=== PATIENT | male | born 1935 | race Caucasian/White ===

== ENCOUNTER 2021-08-16 10:16 | Inpatient (IN) | payer MEDICARE ==
[~2021-08-16] VITALS: Ht 172.7 cm; Wt 70.8 kg
[2021-08-16 10:20] VITALS: BP_SYST 137
--- NOTE | 2021-08-16 10:23 | NUR ---
Pt to rm 2 via ambulance [facility]
--- NOTE | 2021-08-16 10:30 | NUR ---
Pt BIBA from home re ALOC per family. Per medics, family states pt has PMH dementia. Upon face to face assessment, pt is alert and oriented to self and place, but not situation. VSS on database reporting consultant. No pain or complaint of any kind reported. Medics further reported pt fell last night; denies LOC or hitting head. Pending MD merrill.
--- NOTE | 2021-08-16 10:42 | NUR ---
Per medics, pt's family unable to located medications. Pt ALOC and unable to provide medication information.
--- NOTE | 2021-08-16 10:44 | NUR ---
Radiology at bedside for cxr
--- NOTE | 2021-08-16 11:35 | NUR ---
# 22 gauge angiocath placed to R AC. Use of asceptic technique. Opsite placed over site. Blood return noted. Blood for lab drawn from site. Flushed with 10 cc of normal saline. No evidence of infiltration noted. Patient tolerated well.
--- NOTE | 2021-08-16 11:35 | NUR ---
COVID swab collected at bedside and sent to lab
--- NOTE | 2021-08-16 11:40 | NUR ---
Pt to CT scan via [facility]
[2021-08-16 12:15] LABS: BASOPHILS % (AUTO) 0.7 % (0.0-2.0); EOSINOPHILS # (AUTO) 0.2 K/uL (0.0-0.4); EOSINOPHILS % (AUTO) 2.5 % (0.0-4.0); HEMATOCRIT 36.6 % (36-54); HEMOGLOBIN 12.2 g/dL (14.0-18.0); LYMPHOCYTES # (AUTO) 1.1 K/uL (1.0-5.5); LYMPHOCYTES % (AUTO) 15.8 % (20.5-51.5); MEAN CORPUSCULAR HEMOGLOBIN 29 pg (27-31); MEAN CORPUSCULAR HGB CONC 33 % (32-36); MEAN CORPUSCULAR VOLUME 86 fL (79.0-98.0); MONOCYTES # (AUTO) 0.7 K/uL (0.0-1.0); MONOCYTES % (AUTO) 10.8 % (1.7-9.3); NEUTROPHILS # (AUTO) 4.7 K/uL (1.8-7.7); NEUTROPHILS % (AUTO) 70.2 % (40.0-70.0); PLATELET COUNT (AUTO) 263 K/uL (130-430); RED BLOOD CELL COUNT(AUTO) 4.24 MIL/uL (4.2-6.2); RED CELL DISTRIBUTION WIDTH 15.5 % (9.0-15.0); WHITE BLOOD COUNT (AUTO) 6.7 K/uL (4.8-10.8)
[2021-08-16 12:22] LABS: ANION GAP 6 (5-15); CALCIUM 8.1 mg/dL (8.4-11.0); CHLORIDE 105 mmol/L (98-107); CREATININE 1.16 mg/dL (0.55-1.30); GLUCOSE 130 mg/dL (70-99); SODIUM SERUM 138 mmol/L (136-145); UREA NITROGEN, BLOOD 24 mg/dL (8-21)
[2021-08-16 12:25] LABS: INR 1.2 (0.80-1.20); PROTHROMBIN TIME 11.7 SECS (9.5-12.5)
[2021-08-16 12:39] LABS: ALANINE AMINOTRANSFERASE 14 U/L (12-78); ALBUMIN 3.3 g/dL (3.4-4.8); ASPARTATE AMINOTRANSFERASE 23 U/L (10-37); TOTAL BILIRUBIN 0.6 mg/dL (0.0-1.0)
[2021-08-16 12:46] LABS: ACETAMINOPHEN < 1 ug/mL (1-30); ALCOHOL, BLOOD < 3 mg/dL (<10)
--- NOTE | 2021-08-16 12:55 | NUR ---
16Fr Carrillo inserted; UA obtained. Catheter then removed. Pt jada well.
--- NOTE | 2021-08-16 12:55 | NUR ---
Complete bed linen change; pt cleaned and repositioned.
--- NOTE | 2021-08-16 12:57 | NUR ---
urine specimen collected from In and Out blackmon catheter sent to lab. Pt tolerated well.
[2021-08-16 13:39] LABS: BILIRUBIN,URINE NEGATIVE (NEGATIVE); BLOOD, URINE 1+ (NEGATIVE); COLOR,URINE YELLOW (YELLOW); GLUCOSE,URINE 1+ (NEGATIVE); KETONES,URINE NEGATIVE (NEGATIVE); LEUKOCYTE ESTERASE ,URINE NEGATIVE (NEGATIVE); NITRITE, URINE NEGATIVE (NEGATIVE); PH,URINE 5.5 (5.0-8.0); PROTEIN URINE NEGATIVE (NEGATIVE); UROBILINOGEN,URINE 0.2 (0.2-1.0)
[2021-08-16 13:40] LABS: CLARITY/URINE SLIGHTLY HAZY (CLEAR)
[2021-08-16 13:43] LABS: BACTERIA,URINE FEW /HPF (None Seen); WBC,URINE 0-3 /HPF (0-3)
[2021-08-16 13:44] LABS: MUCUS,URINE 1+ /LPF (None Seen)
[2021-08-16] MEDS ORDERED: CYAN100010 PO (13:45)
[2021-08-16] MEDS ORDERED: vitamin D2 (13:45)
[2021-08-16] MEDS ORDERED: INSU100V9 SQ (13:45)
[2021-08-16] MEDS ORDERED: FOLI-43 PO (13:45)
[2021-08-16] MEDS ORDERED: SIMV10TA2 PO (13:45)
[2021-08-16] MEDS ORDERED: SSREG SUBCUT (13:45)
[2021-08-16] MEDS ORDERED: DABI150C PO (13:45)
--- NOTE | 2021-08-16 13:46 | NUR ---
Medication reconciliation completed with information provided by patient's dtr over the phone. Any prior medication reconciliation on file was reviewed and corrected.
[2021-08-16 13:52] LABS: BARBITURATE, URINE NEGATIVE (NEG <=200); BENZODIAZEPINE, URINE NEGATIVE (NEG <=150); CANNABINOID, URINE NEGATIVE (NEG <=50); COCAINE, URINE NEGATIVE (NEG <=150); METHAMPHETAMINES SCREEN,URINE NEGATIVE (NEG <=500); OPIATE, URINE NEGATIVE (NEG <=100); PHENCYCLIDINE SCREEN,URINE NEGATIVE (NEG <=25); UR TRICYCLIC ANTIDEPRESSANTS NEGATIVE (NEG <=300); URINE AMPHETAMINE NEGATIVE (NEG <=500); URINE METHADONE NEGATIVE (NEG <=200); URINE OXYCODONE SCREEN NEGATIVE (NEG <=100); URINE PROPOXYPHENE SCREEN NEGATIVE (NEG <=300)
[2021-08-16] MEDS ORDERED: NALOXONE HCL 2 MG/2 ML SYR (NARCAN) IVP ONE (14:00)
--- NOTE | 2021-08-16 14:44 | NUR ---
RN will hold Narcan at this time. Pt sleeping, easily arousable to voice. Pt has hx dementia. Dr Smith informed.
--- NOTE | 2021-08-16 15:56 | NUR ---
Pt to transfer to [place]. Awaiting transfer information.
--- NOTE | 2021-08-16 17:30 | NUR ---
Pt SL to R AC discontinued due to infiltration
--- NOTE | 2021-08-16 18:05 | NUR ---
No transfer information received for [place] yet. Pt continues to await transfer. Pt attempting to get out of bed; very confused and requiring frequent redirection/reorientation to situation. Will continue to monitor closely.
[2021-08-16] MEDS: D5/0.45 NS 1,000 ML IV SCH (18:45)
--- NOTE | 2021-08-16 18:47 | NUR ---
Admit bed requested Patient will be admitted to care of Dr. Rosas. Admitted to tele unit. Diagnosis Encephalopathy Inpatient (Yes or No) Y Observation (Yes or No) N Orientation concerns or request close to nursing station (Yes or No) N Covid Status Neg On vent or bipap N Isolation requirements N Needs a sitter N From Home (Yes or if No enter name of facility) Home Requires Dialysis (Yes or No) N Med Rec Completed (Yes of No) Y
--- NOTE | 2021-08-16 19:16 | NUR ---
Report given to Zain KULKARNI to assume care of patient
--- NOTE | 2021-08-16 20:16 | NUR ---
# 20 gauge angiocath placed to . Use of asceptic technique. Opsite placed over site. Blood return noted. Blood for lab drawn from site. Flushed with 10 cc of normal saline. No evidence of infiltration noted. Patient tolerated well.
--- NOTE | 2021-08-16 23:00 | NUR ---
# 20 gauge angiocath placed to . Use of asceptic technique. Opsite placed over site. Blood return noted. Blood for lab drawn from site. Flushed with 10 cc of normal saline. No evidence of infiltration noted. Patient tolerated well. PREVIOUS IV PULLED OUT BY PATIENT.
--- NOTE | 2021-08-17 | NUR ---
PATIENT CLEANED AND LINENS CHANGED.
--- NOTE | 2021-08-17 01:51 | NUR ---
PATIENT CLEANED, LINENS CHANGED. NEW IV PLACED.
[2021-08-17 02:10] VITALS: BP_SYST 179
[2021-08-17 02:31] VITALS: BP_SYST 173
[2021-08-17] MEDS: D5/0.45 NS 1,000 ML IV SCH (03:40)
[2021-08-17] MEDS ORDERED: cloNIDine HCL 0.1 MG TABLET PO PRN (06:00)
[2021-08-17 08:00] VITALS: BP_SYST 148
[2021-08-17] MEDS ORDERED: DABIGATRAN ETEXILATE MESYLATE 75 MG CAPSULE PO SCH (09:00)
[2021-08-17] MEDS: FOLIC ACID 1 MG TABLET PO SCH (09:43)
[2021-08-17] MEDS: CYANOCOBALAMIN 1000 mCg TABLET PO SCH (09:43)
[2021-08-17 12:00] VITALS: BP_SYST 150
--- NOTE | 2021-08-17 12:52 | NUR ---
CONSULTATION PAGED/CALLED Reason for Consultation: [] SEIZURES Person Who was Notified: [] DR Deb MEHTA Consulting Physician: [] DR Deb MEHTA Head Tennis Professional Specialty: [] NEURO Ordering Physician: [] DR CONTRERAS
[2021-08-17] MEDS: INSULIN REGULAR, HUMAN 100 UNITS/ML, 10 ML VIAL (humuLIN R) SUBCUT PRN (13:09)
--- NOTE | 2021-08-17 13:52 | NUR ---
FRAN: Brad: per Yvette, standards analyst stated aware that the pt is admitted and the clinical is being reviewed, no transfer to network for today.
[2021-08-17 16:00] VITALS: BP_SYST 142
--- NOTE | 2021-08-17 19:15 | NUR ---
OPENING NOTE REPORT RECEIVED FROM DAYSHIFT NURSE. PATIENT RECEIVED LYING IN BED, EYES CLOSED, RESTING, NO S/S OF ACUTE DISTRESS. BREATHING IS EVEN AND UNLABORED. HOB SLIGHTLY RAISED. IVF INFUSING WELL, IV SITE PATENT, NO SIGNS OF INFILTRATION OR INFECTION NOTED. SKIN WARM AND DRY TO TOUCH. BED ALARM ON. BED IS LOCKED AND AT LOWEST POSITION. WILL CONTINUE TO MONITOR.
[2021-08-17 20:00] VITALS: BP_SYST 148
[2021-08-17] MEDS: SIMVASTATIN 10 MG TABLET PO SCH (20:57)
--- NOTE | 2021-08-17 21:30 | NUR ---
INCONTINENT CARE PATIENT CLEANED AT THIS TIME, TOLERATED WELL. ALL NEEDS MET. WILL CONTINUE TO MONITOR.
[2021-08-18 00:42] VITALS: BP_SYST 154
[2021-08-18] MEDS: INSULIN REGULAR, HUMAN 100 UNITS/ML, 10 ML VIAL (humuLIN R) SUBCUT PRN ×3 (06:00→21:25)
--- NOTE | 2021-08-18 06:23 | NUR ---
CLOSING NOTE PATIENT IN BED, RESTING, NO S/S OF ACUTE DISTRESS NOTED. BREATHING EVEN AND UNLABORED. HOB RAISED. IVF INFUSING WELL, IV SITE PATENT, NO SIGNS OF INFILTRATION OR INFECTION NOTED. SKIN WARM AND DRY TO TOUCH, LAST BS AT 157. ALL NEEDS MET THROUGHOUT SHIFT. FALL, SAFETY PRECAUTIONS MAINTAINED THROUGHOUT SHIFT. WILL CONTINUE TO MONITOR UNTIL PATIENT CARE IS ENDORSED TO ONCOMING DAYSHIFT NURSE.
[2021-08-18 06:27] LABS: ANION GAP 9 (5-15); CHLORIDE 101 mmol/L (98-107); CREATININE 1.06 mg/dL (0.55-1.30); GLUCOSE 172 mg/dL (70-99); POTASSIUM 3.3 mmol/L (3.5-5.1); SODIUM SERUM 136 mmol/L (136-145); UREA NITROGEN, BLOOD 16 mg/dL (8-21)
[2021-08-18 06:43] LABS: ALANINE AMINOTRANSFERASE 10 U/L (12-78); ALBUMIN 3.1 g/dL (3.4-4.8); ASPARTATE AMINOTRANSFERASE 23 U/L (10-37); BASOPHILS % (AUTO) 0.6 % (0.0-2.0); EOSINOPHILS # (AUTO) 0.2 K/uL (0.0-0.4); EOSINOPHILS % (AUTO) 2.6 % (0.0-4.0); HEMATOCRIT 39.3 % (36-54); HEMOGLOBIN 13.4 g/dL (14.0-18.0); LYMPHOCYTES # (AUTO) 0.7 K/uL (1.0-5.5); LYMPHOCYTES % (AUTO) 8.9 % (20.5-51.5); MEAN CORPUSCULAR HEMOGLOBIN 29 pg (27-31); MEAN CORPUSCULAR HGB CONC 34 % (32-36); MEAN CORPUSCULAR VOLUME 85 fL (79.0-98.0); MONOCYTES # (AUTO) 0.9 K/uL (0.0-1.0); NEUTROPHILS % (AUTO) 75.9 % (40.0-70.0); PLATELET COUNT (AUTO) 276 K/uL (130-430); RED BLOOD CELL COUNT(AUTO) 4.63 MIL/uL (4.2-6.2); RED CELL DISTRIBUTION WIDTH 15.3 % (9.0-15.0); THYROID STIMULATING HORMONE 1.08 uIu/mL (0.36-3.74); TOTAL BILIRUBIN 1.1 mg/dL (0.0-1.0); WHITE BLOOD COUNT (AUTO) 7.8 K/uL (4.8-10.8)
--- NOTE | 2021-08-18 07:15 | NUR ---
OPENING NOTE Patient in bed resting with eyes closed. No sign of distress or pain. IV is clean, dry, intact, and running prescribed fluids. Bed alarm is on and safety checks made. All needs met at this time.
[2021-08-18 08:00] VITALS: BP_SYST 150
[2021-08-18] MEDS: FOLIC ACID 1 MG TABLET PO SCH (09:05)
[2021-08-18] MEDS: CYANOCOBALAMIN 1000 mCg TABLET PO SCH (09:05)
[2021-08-18 10:10] LABS: CHOLESTEROL 113 mg/dL (<200); HDL CHOLESTEROL 32 mg/dL (>45); LDL CHOLESTEROL 72 mg/dL (<100); TRIGLYCERIDES 55 mg/dL (30-150)
[2021-08-18] MEDS: D5/0.45 NS 1,000 ML IV SCH (10:45)
[2021-08-18] MEDS: VANCOMYCIN HCL 750 MG in NS 250 ML IV SCH ×2 (11:34→21:22)
[2021-08-18 12:00] VITALS: BP_SYST 156
--- NOTE | 2021-08-18 19:00 | NUR ---
CLOSING NOTE Patient in bed resting with eyes closed. Patient refused dinner and stated he wanted to sleep. IV site is patent and running prescribed fluids. No sign of distress or pain. All needs met at this time and safety checks made. Endorsed to shift lab technician nurse.
[2021-08-18] MEDS: SIMVASTATIN 10 MG TABLET PO SCH ×2 (21:00→21:21)
[2021-08-18 21:27] VITALS: BP_SYST 145
[2021-08-19 00:34] VITALS: BP_SYST 137
[2021-08-19] MEDS: D5/0.45 NS 1,000 ML IV SCH (06:14)
[2021-08-19] MEDS: INSULIN REGULAR, HUMAN 100 UNITS/ML, 10 ML VIAL (humuLIN R) SUBCUT PRN ×3 (06:22→20:59)
--- NOTE | 2021-08-19 07:25 | NUR ---
MORNING ROUNDS: PATIENT SLEEPING DURING ROUNDS. IV FLUIDS RUNNING AT LEFT FOREARM INTACT. ROOM AIR,WITH GOOD SATURATION.ON TELEMETRY,ATRIAL FLUTTER.DENIES ANY PAIN.CONTINUE TO MONITOR.
[2021-08-19 08:00] VITALS: BP_SYST 146
--- NOTE | 2021-08-19 08:30 | NUR ---
FED BREAKFAST: PATIENT ATE ONLY 10% OF HIS BREAKFAST TRAY. PATIENT REFUSED TO EAT MORE.CRUSHED MEDS WITH APPLE SAUCE GIVEN TO PATIENT AND WELL TOLERATED.
[2021-08-19] MEDS: CYANOCOBALAMIN 1000 mCg TABLET PO SCH (09:58)
[2021-08-19] MEDS: FOLIC ACID 1 MG TABLET PO SCH (09:58)
[2021-08-19] MEDS: VANCOMYCIN HCL 750 MG in NS 250 ML IV SCH ×2 (10:04→21:08)
--- NOTE | 2021-08-19 16:20 | NUR ---
DAUGHTER CALLED: SPOKE WITH ROSI AND UPDATES GIVEN.
[2021-08-19 16:29] VITALS: BP_SYST 149
--- NOTE | 2021-08-19 18:51 | NUR ---
EVENING ROUNDS: PATIENT,SLEEPING DURING ROUNDS. IV FLUIDS RUNNING AT LEFT FOOT ORDERED. BED LOCKED AT LOWEST POSITION. NOT IN ANY DISTRESS.BED ALARM ON.
[2021-08-19 20:00] VITALS: BP_SYST 147
[2021-08-19] MEDS: SIMVASTATIN 10 MG TABLET PO SCH (20:47)
[2021-08-20] VITALS: BP_SYST 135
[2021-08-20] MEDS: D5/0.45 NS 1,000 ML IV SCH ×2 (03:21→21:18)
[2021-08-20] MEDS: INSULIN REGULAR, HUMAN 100 UNITS/ML, 10 ML VIAL (humuLIN R) SUBCUT PRN ×2 (06:47→16:58)
--- NOTE | 2021-08-20 07:45 | NUR ---
MORNING ROUNDS: PATIENT RESTING IN THE BED. IV FLUIDS RUNNING AT LEFT FOOT ORDERED. BED LOCKED AT LOWEST POSITION. SAFETY MEASURES RENDERED. CONTINUE TO MONITOR.
[2021-08-20 08:00] VITALS: BP_SYST 148
[2021-08-20] MEDS: FOLIC ACID 1 MG TABLET PO SCH (09:35)
[2021-08-20] MEDS: CYANOCOBALAMIN 1000 mCg TABLET PO SCH (09:35)
--- NOTE | 2021-08-20 15:24 | NUR ---
[employer] TRAVEL MANAGER received a referral for possible suicidal risk. TRAVEL MANAGER met w/ pt. bedside. Pt was awake, but spoke with his eyes closed throughout this interview. When TRAVEL MANAGER asked pt. if he knew where he was, why he was in the hospital and what his address were. Pt. did not know any of the answers. TRAVEL MANAGER asked pt. to look at his lunch, but pt. refused. TRAVEL MANAGER was not able to participate in this interview and did not have any questions. TRAVEL MANAGER shared info with FRAN Flores to make her aware pt was not alert and oriented. TRAVEL MANAGER will remain available as needed.
--- NOTE | 2021-08-20 16:08 | NUR ---
DISCHARGE PLANNING Called & spoke with Dr Rosas regarding dc planning SNF or if stable to transfer to contracted hospital, [facility]. States stable to transfer to [facility], not ready for dc. Faxed order/ pt info to [facility]. Ordered CD. Placing transfer packet to nsg station.
[2021-08-20 16:20] VITALS: BP_SYST 140
--- NOTE | 2021-08-20 18:58 | NUR ---
Evening Rounds: Patient refused dinner. Md is aware regarding his poor appetite and family as well. Bed alarm on.bed locked at lowest position.Not in any distress.
--- NOTE | 2021-08-20 21:00 | NUR ---
Skin care comfort Patient oriented to his name , perineal care given no pressure sore , able to change position and turn , assisted in taking medication tolerates well with out aspiration, safety/fall precaution initiated.
[2021-08-20] MEDS: SIMVASTATIN 10 MG TABLET PO SCH (21:05)
[2021-08-21 01:29] VITALS: BP_SYST 142
--- NOTE | 2021-08-21 02:46 | NUR ---
PATIENT RESTING: Patient resting quietly. No acute distress noted. telemetry atrial flutter controlled,
[2021-08-21] MEDS: INSULIN REGULAR, HUMAN 100 UNITS/ML, 10 ML VIAL (humuLIN R) SUBCUT PRN ×4 (06:16→20:34)
--- NOTE | 2021-08-21 06:27 | NUR ---
No significant changes in assessment , pericare given , patient able to turn side to side, safety fall precaution initiated
[2021-08-21 06:44] LABS: BASOPHILS % (AUTO) 0.9 % (0.0-2.0); EOSINOPHILS % (AUTO) 1.1 % (0.0-4.0); HEMATOCRIT 39.6 % (36-54); HEMOGLOBIN 13.6 g/dL (14.0-18.0); LYMPHOCYTES # (AUTO) 1.3 K/uL (1.0-5.5); LYMPHOCYTES % (AUTO) 30.9 % (20.5-51.5); MEAN CORPUSCULAR HEMOGLOBIN 29 pg (27-31); MEAN CORPUSCULAR HGB CONC 34 % (32-36); MEAN CORPUSCULAR VOLUME 85 fL (79.0-98.0); MONOCYTES # (AUTO) 0.8 K/uL (0.0-1.0); MONOCYTES % (AUTO) 19.3 % (1.7-9.3); NEUTROPHILS % (AUTO) 47.8 % (40.0-70.0); PLATELET COUNT (AUTO) 197 K/uL (130-430); RED BLOOD CELL COUNT(AUTO) 4.68 MIL/uL (4.2-6.2); RED CELL DISTRIBUTION WIDTH 15.5 % (9.0-15.0); WHITE BLOOD COUNT (AUTO) 4.2 K/uL (4.8-10.8)
[2021-08-21 07:00] VITALS: BP_SYST 128
[2021-08-21 07:53] LABS: ALANINE AMINOTRANSFERASE 18 U/L (12-78); ANION GAP 10 (5-15); ASPARTATE AMINOTRANSFERASE 42 U/L (10-37); CALCIUM 8.8 mg/dL (8.4-11.0); CHLORIDE 98 mmol/L (98-107); CREATININE 1.05 mg/dL (0.55-1.30); GLUCOSE 174 mg/dL (70-99); POTASSIUM 3.3 mmol/L (3.5-5.1); SODIUM SERUM 132 mmol/L (136-145); TOTAL BILIRUBIN 0.6 mg/dL (0.0-1.0); UREA NITROGEN, BLOOD 17 mg/dL (8-21)
[2021-08-21 08:00] VITALS: BP_SYST 128
[2021-08-21] MEDS: MEGESTROL ACETATE 40 MG TABLET PO SCH (08:44)
[2021-08-21] MEDS: FOLIC ACID 1 MG TABLET PO SCH (08:44)
[2021-08-21] MEDS: CYANOCOBALAMIN 1000 mCg TABLET PO SCH (08:44)
[2021-08-21 12:10] VITALS: BP_SYST 137
[2021-08-21 16:12] VITALS: BP_SYST 126
--- NOTE | 2021-08-21 16:28 | NUR ---
CM: updated dcp with dtr, Sneha, she wants pt to go home with HH, thinking that is best for the pt. Dtr and stephan are the fulltime skin care technician. The pt had prior out patient PT at [facility]. Pending the PT eval is pending for tomorrow then to get the order from PCP for an appropriate dc order. Addendum: 08/22/21 at 1354 by Fabiola Serrato RN Late entry: 08/21 at 1000 am LVM to [facility] dept to update me the transfer status, no return call by 1630.
--- NOTE | 2021-08-21 17:09 | NUR ---
POWER OF HELP DESK TECHNICIAN: DAUGHTER DAYNE HAS THE POWER OF HELP DESK TECHNICIAN FOR PATIENT. PLEASE CALL HER FOR ANY UPDATES/QUESTIONS AT [phone]. DAYNE WOULD LIKE TO SPEAK TO RADIOLOGY RECEPTIONIST. ATTEMPTED TO CALL CM BUT HE/SHE IS GONE FOR THE DAY. RELAYED INFORMATION TO CHARGE NURSE ELKIN AND AWARE ABOUT THE SITUATION. PATIENT LIVES WITH OTHER DAUGHTER ROSI
[2021-08-21] MEDS ORDERED: IPRATROPIUM/ALBUTEROL SULFATE 3 ML AMPUL.NEB (DUONEB) INH PRN (18:00)
[2021-08-21] MEDS ORDERED: IPRATROPIUM/ALBUTEROL SULFATE 3 ML AMPUL.NEB (DUONEB) INH SCH (19:00)
--- NOTE | 2021-08-21 19:03 | NUR ---
END OF SHIFT REPORT GIVEN TO CAYLA S GAVIN. THANK YOU
[2021-08-21 19:40] VITALS: BP_SYST 111
--- NOTE | 2021-08-21 19:40 | NUR ---
INITIAL ASSESSMENT AT INITIAL ASSESSMENT, PATIENT IS RESTING IN BED, STABLE, NO SIGNS OF RESPIRATORY DISTRESS. PATIENT VERBALIZES TOLERABLE PAIN. PLAN OF CARE IS COMMUNICATED TO THE PATIENT, BUT PATIENT IS CONFUSED. CALL LIGHT TEACH BACK IS UNSUCCESSFUL AT THIS TIME DUE TO COGNITIVE IMPAIRMENT. PATIENT IS IN A ROOM NEXT TO THE NURSING STATION FOR CLOSE MONITORING. BED IS LOCKED, ALARMED, AND AT THE LOWEST LEVEL. FALL AND SAFETY PRECAUTIONS WILL BE TAKEN THROUGHOUT THE SHIFT. Addendum: 08/22/21 at 0348 by Maxi glaze grinder PATIENT VERBALIZES NO PAIN*
[2021-08-21] MEDS: D5/0.45 NS 1,000 ML IV SCH (20:24)
[2021-08-21] MEDS: SIMVASTATIN 10 MG TABLET PO SCH (20:24)
--- NOTE | 2021-08-21 21:50 | NUR ---
HYGIENE CARE PATIENT HAD A VOID, HYGIENE CARE IS PROVIDED. PATIENT TOLERATED WELL. HE IS REPOSITIONED FOR COMFORT. BED IS LOCKED, ALARMED, AND AT THE LOWEST LEVEL.
[2021-08-22 01:35] VITALS: BP_SYST 141
[2021-08-22] MEDS: INSULIN REGULAR, HUMAN 100 UNITS/ML, 10 ML VIAL (humuLIN R) SUBCUT PRN ×3 (06:05→16:45)
--- NOTE | 2021-08-22 07:10 | NUR ---
CLOSING NOTE PATIENT SLEPT WELL THROUGHOUT THE NIGHT. AT THIS TIME, HE IS RESTING IN BED, STABLE, NO SIGNS OF RESPIRATORY DISTRESS. CALL LIGHT IS WITHIN REACH. BED IS LOCKED, ALARMED, AND AT THE LOWEST LEVEL. FALL AND SAFETY PRECAUTIONS HAVE BEEN IN PLACE THROUGHOUT THE SHIFT. WILL CONTINUE TO MONITOR UNTIL SHIFT REPORT IS GIVEN AT BEDSIDE TO AM NURSE.
[2021-08-22 07:35] VITALS: BP_SYST 142
[2021-08-22] MEDS: FOLIC ACID 1 MG TABLET PO SCH (08:39)
[2021-08-22] MEDS: MEGESTROL ACETATE 40 MG TABLET PO SCH (08:39)
[2021-08-22] MEDS: CYANOCOBALAMIN 1000 mCg TABLET PO SCH (08:39)
[2021-08-22] MEDS ORDERED: LIDOCAINE PATCH 5% 1 EA TP SCH (09:00)
--- NOTE | 2021-08-22 09:30 | NUR ---
CM: Received call from dtr/Sneha , requesting pt going to snf instead taking the pt home. She consulted with family and determined that the acuity is to high for family to handle. The pt will need PT/OT till strong enough to go home. Sneha agreed with any snf per [place] arrangement.
[2021-08-22 12:00] VITALS: BP_SYST 138
--- NOTE | 2021-08-22 13:55 | NUR ---
CM late entry: Via fax: requesting a CM call back to update the transfer to net work status. 1300: called again to [facility]/ spoke with [employer] quality assurance analyst. Requested pt transfer to snf. 1345: faxed the referral package and [facility] referral form, dc order attn: Raghu/[facility] dept.
[2021-08-22] MEDS: D5/0.45 NS 1,000 ML IV SCH (15:44)
[2021-08-22 16:19] VITALS: BP_SYST 140
[2021-08-22 20:00] VITALS: BP_SYST 135
--- NOTE | 2021-08-22 20:00 | NUR ---
OPENING NOTE PATIENT IN BED WITH DINNER TRAY IN FRONT OF HIM. ASKED PT IF HE WAS DONE WITH DINNER HE REPLIED YES. PATIENT IS AOX1. ONLY ABLE TO STATE HIS NAME UNABLE TO STATE . PT IN NO RESP DISTRESS. PT HAS IV IN THE LEFT FOOT PATENT WITH FLUIDS INFUSING. PATIENT IS CONFUSED AND IS PLACED IN A ROOM NEXT TO THE NURSING STATION FOR CLOSE MONITORING. PT BED ALARMED IS ON AND BED IS AT AT THE LOWEST LEVEL. ALL SAFETY PRECAUTIONS ARE IN PLACE.
[2021-08-22] MEDS: SIMVASTATIN 10 MG TABLET PO SCH (21:03)
[2021-08-23 01:19] VITALS: BP_SYST 135
[2021-08-23] MEDS: INSULIN REGULAR, HUMAN 100 UNITS/ML, 10 ML VIAL (humuLIN R) SUBCUT PRN ×3 (05:01→17:50)
[2021-08-23 05:05] LABS: BASOPHILS % (AUTO) 0.8 % (0.0-2.0); EOSINOPHILS # (AUTO) 0.2 K/uL (0.0-0.4); EOSINOPHILS % (AUTO) 3.7 % (0.0-4.0); HEMATOCRIT 38.3 % (36-54); HEMOGLOBIN 13.2 g/dL (14.0-18.0); LYMPHOCYTES # (AUTO) 1.4 K/uL (1.0-5.5); LYMPHOCYTES % (AUTO) 31.5 % (20.5-51.5); MEAN CORPUSCULAR HEMOGLOBIN 29 pg (27-31); MEAN CORPUSCULAR HGB CONC 35 % (32-36); MEAN CORPUSCULAR VOLUME 84 fL (79.0-98.0); MONOCYTES # (AUTO) 0.7 K/uL (0.0-1.0); MONOCYTES % (AUTO) 15.5 % (1.7-9.3); NEUTROPHILS # (AUTO) 2.2 K/uL (1.8-7.7); NEUTROPHILS % (AUTO) 48.5 % (40.0-70.0); PLATELET COUNT (AUTO) 197 K/uL (130-430); RED BLOOD CELL COUNT(AUTO) 4.56 MIL/uL (4.2-6.2); RED CELL DISTRIBUTION WIDTH 15.6 % (9.0-15.0); WHITE BLOOD COUNT (AUTO) 4.5 K/uL (4.8-10.8)
[2021-08-23 05:20] LABS: ANION GAP 7 (5-15); CALCIUM 8.8 mg/dL (8.4-11.0); CHLORIDE 101 mmol/L (98-107); CREATININE 1.23 mg/dL (0.55-1.30); GLUCOSE 232 mg/dL (70-99); POTASSIUM 3.7 mmol/L (3.5-5.1); SODIUM SERUM 135 mmol/L (136-145); UREA NITROGEN, BLOOD 23 mg/dL (8-21)
[2021-08-23 08:00] VITALS: BP_SYST 125
[2021-08-23] MEDS: FOLIC ACID 1 MG TABLET PO SCH (08:53)
[2021-08-23] MEDS: CYANOCOBALAMIN 1000 mCg TABLET PO SCH (08:54)
[2021-08-23] MEDS: MEGESTROL ACETATE 40 MG TABLET PO SCH (09:00)
[2021-08-23] MEDS: D5/0.45 NS 1,000 ML IV SCH (11:30)
--- NOTE | 2021-08-23 11:30 | NUR ---
CM: faxed the transfer request marked " expedite" and the [facility] to call me back with the transfer update. Confirmed receipt of the document at 11:29
[2021-08-23 12:30] VITALS: BP_SYST 113
[2021-08-23 16:34] VITALS: BP_SYST 136
[2021-08-23 20:00] VITALS: BP_SYST 130
[2021-08-23] MEDS: SIMVASTATIN 10 MG TABLET PO SCH (21:35)
[2021-08-24] VITALS: BP_SYST 136
[2021-08-24 08:00] VITALS: BP_SYST 144
[2021-08-24] MEDS: MEGESTROL ACETATE 40 MG TABLET PO SCH (08:39)
[2021-08-24] MEDS: CYANOCOBALAMIN 1000 mCg TABLET PO SCH (08:39)
[2021-08-24] MEDS: FOLIC ACID 1 MG TABLET PO SCH (08:39)
[2021-08-24] MEDS: D5/0.45 NS 1,000 ML IV SCH (08:41)
[2021-08-24 11:58] VITALS: BP_SYST 148
[2021-08-24] MEDS: INSULIN REGULAR, HUMAN 100 UNITS/ML, 10 ML VIAL (humuLIN R) SUBCUT PRN ×3 (12:04→21:40)
[2021-08-24 15:31] VITALS: BP_SYST 153
--- NOTE | 2021-08-24 16:56 | NUR ---
Dietitian Recommendations * [facility] diet, Glucerna TID (ONS yields 660 kcal/day, 30 gm protein/day) * Encourage increase PO intakes LP, RD Please refer to Nutrition Assessment for details. Addendum: 08/24/21 at [address] Amended: Links added.
--- NOTE | 2021-08-24 17:55 | NUR ---
CM: [facility]axed again[facility] Brad /[facility] with confirmed fax receipt at 1922, also requested a comp field case manager to call me back, non was calling me back up to now. 1197 : received a faxed authorization from [facility] Dept for inpatient stay Tele status, valid from 08/16/2021 to 08/25/2021. Case # [id number]
[2021-08-24 21:27] VITALS: BP_SYST 139
[2021-08-24] MEDS: SIMVASTATIN 10 MG TABLET PO SCH (21:35)
[2021-08-25 00:36] VITALS: BP_SYST 146
[2021-08-25] MEDS: D5/0.45 NS 1,000 ML IV SCH ×2 (02:20→09:42)
[2021-08-25] MEDS: INSULIN REGULAR, HUMAN 100 UNITS/ML, 10 ML VIAL (humuLIN R) SUBCUT PRN ×4 (06:46→20:07)
[2021-08-25 08:10] VITALS: BP_SYST 128
[2021-08-25] MEDS: CYANOCOBALAMIN 1000 mCg TABLET PO SCH (09:45)
[2021-08-25] MEDS: MEGESTROL ACETATE 40 MG TABLET PO SCH (09:45)
[2021-08-25] MEDS: FOLIC ACID 1 MG TABLET PO SCH (09:45)
[2021-08-25 12:00] VITALS: BP_SYST 132
[2021-08-25 16:30] VITALS: BP_SYST 121
--- NOTE | 2021-08-25 19:05 | NUR ---
RECEIVED BEDSIDE REPORT. PT IN BED RESTING AWAKE. PT FAMILY AT BEDSIDE FEEDING PT. HOB ELEVATED. BED RAILS UPX2. BED ALARM ON. CALL LIGHT WITHIN REACH. ALL NEEDS MEET AT THIS TIME.
--- NOTE | 2021-08-25 19:45 | NUR ---
LATE ENTRY DUE TO CARE 0800-pt stable . Lethargic a/ox1. vitals stable. not in acute distress. res even and unlabored. . safety and fall precautions in place. call light within reach . hob elevated. kept comfortable. 0945- due meds given with apple sauce. pt took it well. hob elevated. no s/s of distress noted. 1230- daughter at bed side . updated with poc. verbalized understanding. vitals stable. not in acute distress. 1400- pt cleaned and repositioned. no s/s of distress noted. ivf infusing well. kept comfortable. 1730- pt stable easily arousable with verbal stimuli. vitals stable . daughter at side. updated with poc.verbalized understanding. 1930- pt stable not in acute distress. hob elevated . ivf infusing well. no s/s of pain or distress noted. report given to viet KULKARNI
[2021-08-25 20:00] VITALS: BP_SYST 115
[2021-08-25] MEDS: SIMVASTATIN 10 MG TABLET PO SCH (20:03)
--- NOTE | 2021-08-26 | NUR ---
PT IN BED ASLEEP. PT DOESN'T APPEAR TO BE IN PAIN. PT HAS BEEN CALM ALL NIGHT. PT HAS NOT ATTEMPTED TO GET OUT OF BED. CALL LIGHT WITHIN REACH. WILL CONTINUE TO MONITOR.
[2021-08-26 01:09] VITALS: BP_SYST 162
[2021-08-26] MEDS: INSULIN REGULAR, HUMAN 100 UNITS/ML, 10 ML VIAL (humuLIN R) SUBCUT PRN ×4 (06:30→20:37)
[2021-08-26 07:03] LABS: BASOPHILS % (AUTO) 0.4 % (0.0-2.0); EOSINOPHILS % (AUTO) 0.2 % (0.0-4.0); HEMATOCRIT 37.1 % (36-54); HEMOGLOBIN 12.9 g/dL (14.0-18.0); LYMPHOCYTES % (AUTO) 11.8 % (20.5-51.5); MEAN CORPUSCULAR HEMOGLOBIN 29 pg (27-31); MEAN CORPUSCULAR HGB CONC 35 % (32-36); MEAN CORPUSCULAR VOLUME 84 fL (79.0-98.0); MONOCYTES # (AUTO) 1.6 K/uL (0.0-1.0); NEUTROPHILS # (AUTO) 6.1 K/uL (1.8-7.7); PLATELET COUNT (AUTO) 215 K/uL (130-430); RED BLOOD CELL COUNT(AUTO) 4.44 MIL/uL (4.2-6.2); RED CELL DISTRIBUTION WIDTH 15.3 % (9.0-15.0); WHITE BLOOD COUNT (AUTO) 8.7 K/uL (4.8-10.8)
--- NOTE | 2021-08-26 07:15 | NUR ---
RECEIVED BEDSIDE REPORT. PT IN BED RESTING. FAMILY AT BEDSIDE. CALL LIGHT WITHIN REACH. BED ALARM ON. BED RAILS UPX2. ALL NEEDS MEET AT THIS TIME. Addendum: 08/27/21 at 0510 by Anuj Hong RN @[phone]
[2021-08-26 07:55] LABS: ANION GAP 11 (5-15); CALCIUM 8.9 mg/dL (8.4-11.0); CHLORIDE 100 mmol/L (98-107); CREATININE 1.18 mg/dL (0.55-1.30); GLUCOSE 217 mg/dL (70-99); POTASSIUM 3.4 mmol/L (3.5-5.1); SODIUM SERUM 134 mmol/L (136-145); UREA NITROGEN, BLOOD 31 mg/dL (8-21)
[2021-08-26 08:04] VITALS: BP_SYST 138
[2021-08-26] MEDS: FOLIC ACID 1 MG TABLET PO SCH (08:52)
[2021-08-26] MEDS: CYANOCOBALAMIN 1000 mCg TABLET PO SCH (08:52)
[2021-08-26] MEDS: MEGESTROL ACETATE 40 MG TABLET PO SCH (08:54)
[2021-08-26 11:18] VITALS: BP_SYST 133
--- NOTE | 2021-08-26 13:59 | NUR ---
DISCHARGE PLANNING Received call from June at [facility], , requested updated PT notes & info faxed. No snf found yet, will cont to look for snf beds. Faxed info requested.
[2021-08-26 14:06] LABS: NEUTROPHILS % (AUTO) 69.6 % (40.0-70.0)
[2021-08-26 16:04] VITALS: BP_SYST 124
[2021-08-26] MEDS: D5/0.45 NS 1,000 ML IV SCH (19:14)
--- NOTE | 2021-08-26 19:15 | NUR ---
RECEIVED BEDSIDE REPORT. PT IN BED RESTING. FAMILY AT BEDSIDE. CALL LIGHT WITHIN REACH. BED ALARM ON. BED RAILS UPX2. ALL NEEDS MEET AT THIS TIME.
--- NOTE | 2021-08-26 20:10 | NUR ---
PT STARTED WHAT APPEARED TO BE SHIVERING. TEMP 101.5. BLANKETS REMOVED. COOLING MEASURES IN PLACE. PT MEDICATED WITH TYLENOL. WILL CONTINUE TO MONITOR
[2021-08-26 20:15] VITALS: BP_SYST 145
[2021-08-26] MEDS ORDERED: ACETAMINOPHEN 325 MG TABLET PO PRN (20:30)
[2021-08-26] MEDS: SIMVASTATIN 10 MG TABLET PO SCH (20:30)
[2021-08-26 21:19] LABS: BASOPHILS % (AUTO) 0.2 % (0.0-2.0); EOSINOPHILS % (AUTO) 0.1 % (0.0-4.0); HEMATOCRIT 38.4 % (36-54); HEMOGLOBIN 12.9 g/dL (14.0-18.0); LYMPHOCYTES # (AUTO) 0.5 K/uL (1.0-5.5); LYMPHOCYTES % (AUTO) 3.4 % (20.5-51.5); MEAN CORPUSCULAR HEMOGLOBIN 28 pg (27-31); MEAN CORPUSCULAR HGB CONC 34 % (32-36); MEAN CORPUSCULAR VOLUME 84 fL (79.0-98.0); MONOCYTES # (AUTO) 0.4 K/uL (0.0-1.0); NEUTROPHILS # (AUTO) 13.1 K/uL (1.8-7.7); NEUTROPHILS % (AUTO) 93.3 % (40.0-70.0); PLATELET COUNT (AUTO) 237 K/uL (130-430); RED BLOOD CELL COUNT(AUTO) 4.57 MIL/uL (4.2-6.2); RED CELL DISTRIBUTION WIDTH 15.6 % (9.0-15.0)
[2021-08-26 21:28] LABS: ANION GAP 12 (5-15); CALCIUM 8.9 mg/dL (8.4-11.0); CHLORIDE 99 mmol/L (98-107); CREATININE 1.44 mg/dL (0.55-1.30); GLUCOSE 272 mg/dL (70-99); POTASSIUM 3.6 mmol/L (3.5-5.1); SODIUM SERUM 133 mmol/L (136-145); UREA NITROGEN, BLOOD 35 mg/dL (8-21)
--- NOTE | 2021-08-26 22:00 | NUR ---
TEMP 97.5. PT NO LONGER SHIVERING.
[2021-08-27 00:10] VITALS: BP_SYST 139
[2021-08-27 04:23] LABS: BILIRUBIN,URINE 1+ (NEGATIVE); BLOOD, URINE 3+ (NEGATIVE); CLARITY/URINE CLEAR (CLEAR); COLOR,URINE YELLOW (YELLOW); GLUCOSE,URINE 3+ (NEGATIVE); KETONES,URINE TRACE (NEGATIVE); LEUKOCYTE ESTERASE ,URINE NEGATIVE (NEGATIVE); NITRITE, URINE NEGATIVE (NEGATIVE); PH,URINE 5.5 (5.0-8.0); PROTEIN URINE 2+ (NEGATIVE)
[2021-08-27 05:09] LABS: BACTERIA,URINE None Seen /HPF (None Seen); RBC,URINE 50-80 /HPF (0-3); WBC,URINE 0-3 /HPF (0-3)
[2021-08-27 05:10] LABS: MUCUS,URINE None Seen /LPF (None Seen)
[2021-08-27] MEDS: INSULIN REGULAR, HUMAN 100 UNITS/ML, 10 ML VIAL (humuLIN R) SUBCUT PRN ×3 (06:40→17:35)
[2021-08-27 07:38] VITALS: BP_SYST 137
--- NOTE | 2021-08-27 08:50 | NUR ---
pt refused to open his mouth when breakfast is offered. shuts down his eyes when asked if he can take his meds.
[2021-08-27] MEDS: CYANOCOBALAMIN 1000 mCg TABLET PO SCH (09:00)
[2021-08-27] MEDS: MEGESTROL ACETATE 40 MG TABLET PO SCH (09:00)
[2021-08-27] MEDS: FOLIC ACID 1 MG TABLET PO SCH (09:00)
--- NOTE | 2021-08-27 12:01 | NUR ---
DISCHARGE PLANNING Received call from May at [facility] 's reviewing for auth for SNF.
[2021-08-27] MEDS: D5/0.45 NS 1,000 ML IV SCH (14:27)
--- NOTE | 2021-08-27 16:39 | NUR ---
Attempted PT visit x3, pt unable to consent to PT treatment secondary to being asleep and unwilling to open his eyes and verbally respond when asked questions. Family inside room during last attempt and have been notified of prior attempts. RN made aware.
--- NOTE | 2021-08-27 16:40 | NUR ---
spoke with dr johnson if he wants to reorder the eeg that was cancelled. said he will see the pt first and will decide. informed family, dtr at bedside.
[2021-08-27 18:39] VITALS: BP_SYST 131
[2021-08-27 20:00] VITALS: BP_SYST 122
[2021-08-27] MEDS: SIMVASTATIN 10 MG TABLET PO SCH (21:00)
[2021-08-28 00:32] VITALS: BP_SYST 113
[2021-08-28] MEDS: INSULIN REGULAR, HUMAN 100 UNITS/ML, 10 ML VIAL (humuLIN R) SUBCUT PRN ×5 (00:50→20:48)
[2021-08-28 08:00] VITALS: BP_SYST 124
[2021-08-28] MEDS: FOLIC ACID 1 MG TABLET PO SCH (09:49)
[2021-08-28] MEDS: MEGESTROL ACETATE 40 MG TABLET PO SCH (09:49)
[2021-08-28] MEDS: CYANOCOBALAMIN 1000 mCg TABLET PO SCH (09:50)
--- NOTE | 2021-08-28 12:33 | NUR ---
CM: S/w Yoli Torie Brad # [phone]: still not snf for the pt. Informed her that the Wbc elevated as of yesterday no labs today. Pt does not want to participate today dt sleepiness. The cm stated the pt is authorized up to today while waiting for medical doctor nuclear medicine reviewing the case. Updated clinical info faxed to her per request. CBC, Chem ordered per request. -- Dr Rosas/Missy العلي made aware.
[2021-08-28 12:47] VITALS: BP_SYST 128
[2021-08-28 13:22] LABS: BASOPHILS # (AUTO) 0.2 K/uL (0.0-0.2); BASOPHILS % (AUTO) 0.7 % (0.0-2.0); EOSINOPHILS # (AUTO) 0.1 K/uL (0.0-0.4); EOSINOPHILS % (AUTO) 0.3 % (0.0-4.0); HEMATOCRIT 36.3 % (36-54); HEMOGLOBIN 12.1 g/dL (14.0-18.0); LYMPHOCYTES # (AUTO) 0.4 K/uL (1.0-5.5); LYMPHOCYTES % (AUTO) 1.7 % (20.5-51.5); MEAN CORPUSCULAR HEMOGLOBIN 28 pg (27-31); MEAN CORPUSCULAR HGB CONC 33 % (32-36); MEAN CORPUSCULAR VOLUME 84 fL (79.0-98.0); MONOCYTES # (AUTO) 1.7 K/uL (0.0-1.0); MONOCYTES % (AUTO) 6.4 % (1.7-9.3); NEUTROPHILS # (AUTO) 23.7 K/uL (1.8-7.7); NEUTROPHILS % (AUTO) 90.9 % (40.0-70.0); PLATELET COUNT (AUTO) 156 K/uL (130-430); RED CELL DISTRIBUTION WIDTH 15.9 % (9.0-15.0); WHITE BLOOD COUNT (AUTO) 26.1 K/uL (4.8-10.8)
[2021-08-28 13:36] LABS: ANION GAP 18 (5-15); CALCIUM 8.8 mg/dL (8.4-11.0); CHLORIDE 98 mmol/L (98-107); CREATININE 2.16 mg/dL (0.55-1.30); POTASSIUM 3.2 mmol/L (3.5-5.1); SODIUM SERUM 133 mmol/L (136-145); UREA NITROGEN, BLOOD 69 mg/dL (8-21)
[2021-08-28 13:50] LABS: GLUCOSE 449 mg/dL (70-99)
--- NOTE | 2021-08-28 15:57 | NUR ---
Attempted PT visit, pt unable to consent to tx, not alert or oriented and unable to keep eyes open. RN made aware.
[2021-08-28 16:52] VITALS: BP_SYST 124
[2021-08-28 19:00] VITALS: BP_SYST 139
--- NOTE | 2021-08-28 19:15 | NUR ---
change of shift,.pt.presents affect;lethargic.loc;confused.pt.presents no eye contact,verbal status.pt.response to tactile stimulation.movement head,hand gestures.bedrest activity status.iv access location rt.forearm intact;patent.general status stable.respiratory status stable;unlabored@room air.call light/telephone w/in access of the pt.
[2021-08-28 20:00] VITALS: BP_SYST 139
--- NOTE | 2021-08-28 20:00 | NUR ---
pt.assessed.v/s assessed values wnl.o2-sat%=96%.per flacc pain mgx pt.absent facial grimaces/body posturing.pt.assessed for [id number].pt.repositioned.family;dtr present.she has apprised me that the pt.is not eating and affect;loc;lethargic/with- drawn.call light/telephone placed w/in access of the pt.
--- NOTE | 2021-08-28 20:30 | NUR ---
blood glucose assessed value;409mg/dl.
[2021-08-28] MEDS: SIMVASTATIN 10 MG TABLET PO SCH (20:43)
--- NOTE | 2021-08-28 21:00 | NUR ---
2100p medication;zocor.pt.incapable to ingest the po medication.pt.presents no attempt to swallow.insulin;regular:2-u administered.per sliding scale protocol.dr.ashok valdivia. Addendum: 08/29/21 at 0248 by Ramon Hills RN apprised of the blood glucose value:409mg/dl.administration 12-u insulin;regular. did not order additional insulin administration.i apprised that the iv fluids were d/c pt.presents poor ingestion fluids. ordered iv fluids:rate;100 ml/hr.swallow eval in am:08/29/21. Addendum: 08/29/21 at 0249 by Ramon Hills RN apprised the k+3.2. ordered k+40meq x1;po.
--- NOTE | 2021-08-28 21:00 | NUR ---
HIGH ALERT NOTE: Called Dr. randall back at [[phone] identified within the medical roster to verify physician authenticity.pt.presented K+:3.2. ordered k+40meq po x1.
[2021-08-28] MEDS ORDERED: POTASSIUM CHLORIDE 20 MEQ/PKT PACKET PO ONE (21:45)
--- NOTE | 2021-08-28 22:00 | NUR ---
pt.assessed.quiescent,somnolent.per flacc pain mgx pt.absent facial grimaces/body postuing.t.assesfo c;lcn ie spt/. reiopnmed.iv fuid sintirted.k= po adf,osterd.ca;lioght/telepo apcewin aces sof thpt.
[2021-08-28] MEDS: NACL 0.9% 1,000 ML IV SCH (23:56)
--- NOTE | 2021-08-29 | NUR ---
pt.assessed.v/s assessed values wnl.per flacc pain mgx pt.absent facial grimaces/body posturing.pt.assessed for cleanliness. pt.repositioned.iv access intact;patent.call light/telephone placed w/in access of the pt.
[2021-08-29 01:01] VITALS: BP_SYST 133
--- NOTE | 2021-08-29 02:00 | NUR ---
pt.assessed.pt.quiescent,somnolent.per flacc pain mgx pt.absent facial grimaces/body posturing.pt.assessed for cleanliness. pt.repositioned.iv access intact;patent.call light/telephone placed w/in access of the pt.
--- NOTE | 2021-08-29 04:00 | NUR ---
pt.assessed.pt.quiescent,somnolent.per flacc pain mgx pt.absent facial grimaces/body posturing.pt.assessed for cleanliness. pt.repositioned.call light/telephone placed w/in access of the pt.
[2021-08-29] MEDS: INSULIN REGULAR, HUMAN 100 UNITS/ML, 10 ML VIAL (humuLIN R) SUBCUT PRN ×5 (05:35→22:30)
--- NOTE | 2021-08-29 06:04 | NUR ---
pt.assessed.blood glucose assessed value:530mg/dl.dr.ashok valdivia.insulin;regular:12-u administered.per sliding scale protocol. iv access intact;patent.pt.assessed for cleanliness.pt.repositioned.per flacc pain mgx pt.absent facial grimaces/body posturing. call light/telephone placed w/in access of the pt.
[2021-08-29] MEDS ORDERED: INSULIN REGULAR, HUMAN 100 UNITS/ML, 10 ML VIAL SUBCUT ONE (06:45)
--- NOTE | 2021-08-29 06:45 | NUR ---
HIGH ALERT NOTE: Called Dr. randall back at [[phone] identified within the medical roster to verify physician authenticity.pt.presented elevated blood glucose status;530mg/dl. odered.insulin;regular:4-u sq x1.
[2021-08-29] MEDS: NACL 0.9% 1,000 ML IV SCH ×5 (07:45→22:20)
[2021-08-29] MEDS: MEGESTROL ACETATE 40 MG TABLET PO SCH (11:05)
[2021-08-29] MEDS: FOLIC ACID 1 MG TABLET PO SCH (11:05)
[2021-08-29] MEDS: CYANOCOBALAMIN 1000 mCg TABLET PO SCH (11:06)
[2021-08-29 12:29] LABS: BASOPHILS % (AUTO) 0.2 % (0.0-2.0); HEMATOCRIT 35.1 % (36-54); HEMOGLOBIN 11.8 g/dL (14.0-18.0); LYMPHOCYTES # (AUTO) 0.3 K/uL (1.0-5.5); LYMPHOCYTES % (AUTO) 1.6 % (20.5-51.5); MEAN CORPUSCULAR HEMOGLOBIN 29 pg (27-31); MEAN CORPUSCULAR HGB CONC 34 % (32-36); MEAN CORPUSCULAR VOLUME 85 fL (79.0-98.0); MONOCYTES # (AUTO) 0.6 K/uL (0.0-1.0); MONOCYTES % (AUTO) 3.2 % (1.7-9.3); NEUTROPHILS # (AUTO) 17.7 K/uL (1.8-7.7); PLATELET COUNT (AUTO) 148 K/uL (130-430); RED BLOOD CELL COUNT(AUTO) 4.14 MIL/uL (4.2-6.2); WHITE BLOOD COUNT (AUTO) 18.6 K/uL (4.8-10.8)
[2021-08-29 12:50] VITALS: BP_SYST 135
--- NOTE | 2021-08-29 13:26 | NUR ---
DISCHARGE PLANNING Called & spoke with Dr Rosas regarding plan of care. Not stable to dc to SNF, elevated wbc, elevated blood sugar. Gave ph order to transfer to contracted hospital([facility]). Received call from Angelica at [facility], ph [phone], updated on transfer to [facility]. States to fax order & will work on transfer. Faxed order/updated pt info, along with Dr Rosas direct # & direct nsg station #.
--- NOTE | 2021-08-29 14:32 | NUR ---
ST EVALUATION COMPLETED. ST TX NOT INDICATED AT THIS TIME. PT LETHARGIC AND MINIMALLY INTERACTIVE WITH MEALS. FATIGUES EASILY. RECOMMEND PO DIET OF PUREE/THIN LIQUID WITH 1:1 FEEDER AND FULL ASPIRATION PRECAUTIONS.
--- NOTE | 2021-08-29 15:39 | NUR ---
Nutrition F/U Admitting Diagnosis Encephalopathy, atr flutter Reviewed Pertinent Medical/Surgical Hx Medical Record Medical History Comment: PMH: dementia, DM, and HTN per physician notes Per EMR review, pt also found w/ altered mental status, FTT, minor head injury, s/p fall, stable atr fibr, dementia, HTN, and DM per physician notes Subjective Information: Nutrition Consult received d/t poor oral intake 08/28/212147. RD bedside visit deferred d/t high workload. Per EMR review, pt was seen by ST for swallow eval this afternoon, at which time, ST stated pt is lethargic and minimally interactive w/ meals; fatigues easily; recommend PO diet of puree/thin liquid w/ 1:1 feeder and full aspiration precautions; pt is aphasic; on RA; low PO intakes; LBM x2 08/29; not stable to D/C to SNF, however, per CM notes, possible transfer to [place]. Pt is not meeting nutritional needs. Current Diet Order/Nutrition Support: N/A Patient/Significant Other Unable To Verbalize Education Provided Not Indicated Pertinent Medications: megace, folic acid, VIT B12, SSI, NS IV Pertinent Labs: 08/29: WBC 18.6 H, POC BG 445 H; 08/28: Na 133 L, BG 449 H, BUN 69 H, CRE 2.16 H, K 3.2 L Height (Feet) 5 feet Height (Inches) 8.00 inches Weight (Pounds) 156 pounds -- stable since 08/24 Patient Weight 70.76 kg Body Mass Index 23.72 kg/m2 %IBW [address] [place]/Adjusted Body Weight 154#/70 kg Recent Weight Change Unable to verify Weight Status Appropriate Last BM 08/29 Food Allergies Unable to verify Usual Diet At Home Regular per nursing assessment Skin Integrity Comment: Rich scale: 11; per nursing notes, L knee w/ dry scab and erythema, posterior sacrum w/ erythema and IAD Current % PO 14% average x11 meal records Estimated Energy Expenditure (kcals/day) 0665-8798 (25-30 kcal/kg CBW d/t GERIAT maintenance) Estimated Protein Required (g/day) 85 gm (1.2 gm/kg CBW d/t GERIAT maintenance) Estimated Fluid Required (l/day) 1.8-2.1 (25-30 ml/kg CBW d/t GERIAT maintenance) Problem/Etiology/Signs/Symptoms Inadequate nutritional intakes R/T suspected lack of appetite AEB poor PO intake records. *Ongoing Expected Outcomes/Goals - Monitor appetite and PO intakes w/ goal of pt meeting >75% of estimated nutritional needs, labs trending WNL, normal GI function, and skin integrity/wt maintenance Dietitian Recommendations * CCHO, pureed diet, Glucerna TID (ONS yields 660 kcal/day, 30 gm protein/day) * Encourage increase PO intakes Follow Up High Risk: F/U in 2-3 days
--- NOTE | 2021-08-29 15:57 | NUR ---
Dietitian Recommendations * CCHO, pureed diet, Glucerna TID (ONS yields 660 kcal/day, 30 gm protein/day) * Encourage increase PO intakes LP, RD Please refer to Nutrition F/U for details.
[2021-08-29 16:00] VITALS: BP_SYST 139
--- NOTE | 2021-08-29 19:54 | NUR ---
RECEIVED PT LYING IN BED NO DISTRESS NOTED. FAMILY AT BED SIDE. PT WITH EYES CLOSED, PT NONVERBAL, HOWEVER TWITCHES WITH TOUCH STIMULUS. IV SITE TO RT FA SITE CDI. PT WITH INCONTINENT DRY INCONTINENT PAD.
[2021-08-29] MEDS: SIMVASTATIN 10 MG TABLET PO SCH (22:23)
[2021-08-29] MEDS: PIPERACILLIN/TAZO 3.375/DEX-IS 50 ML IV SCH (22:23)
[2021-08-29] MEDS: INSULIN GLARGINE 100 UNITS/ML 10 ML VIAL SUBCUT SCH (22:26)
[2021-08-30 00:54] VITALS: BP_SYST 137
[2021-08-30] MEDS: NACL 0.9% 1,000 ML IV SCH ×2 (05:00→15:13)
[2021-08-30] MEDS: PIPERACILLIN/TAZO 3.375/DEX-IS 50 ML IV SCH ×3 (05:12→22:26)
[2021-08-30] MEDS ORDERED: VANCOMYCIN HCL 1 GM/NS PREMIX 250 ML IV ONE (05:45)
[2021-08-30] MEDS: INSULIN REGULAR, HUMAN 100 UNITS/ML, 10 ML VIAL (humuLIN R) SUBCUT PRN ×4 (06:35→22:24)
[2021-08-30] MEDS ORDERED: VANCOMYCIN HCL 1000 MG/VIAL IV ONE (06:37)
[2021-08-30 06:42] LABS: BASOPHILS % (AUTO) 0.2 % (0.0-2.0); HEMATOCRIT 35.4 % (36-54); LYMPHOCYTES # (AUTO) 0.6 K/uL (1.0-5.5); LYMPHOCYTES % (AUTO) 4.1 % (20.5-51.5); MEAN CORPUSCULAR HEMOGLOBIN 28 pg (27-31); MEAN CORPUSCULAR HGB CONC 34 % (32-36); MEAN CORPUSCULAR VOLUME 84 fL (79.0-98.0); MONOCYTES # (AUTO) 1.2 K/uL (0.0-1.0); MONOCYTES % (AUTO) 8.1 % (1.7-9.3); NEUTROPHILS # (AUTO) 12.5 K/uL (1.8-7.7); NEUTROPHILS % (AUTO) 87.6 % (40.0-70.0); PLATELET COUNT (AUTO) 151 K/uL (130-430); RED BLOOD CELL COUNT(AUTO) 4.21 MIL/uL (4.2-6.2); RED CELL DISTRIBUTION WIDTH 16.4 % (9.0-15.0); WHITE BLOOD COUNT (AUTO) 14.3 K/uL (4.8-10.8)
[2021-08-30 07:07] LABS: ALANINE AMINOTRANSFERASE 25 U/L (12-78); ALBUMIN 1.9 g/dL (3.4-4.8); ANION GAP 13 (5-15); ASPARTATE AMINOTRANSFERASE 45 U/L (10-37); CHLORIDE 114 mmol/L (98-107); CREATININE 1.82 mg/dL (0.55-1.30); POTASSIUM 3.7 mmol/L (3.5-5.1); SODIUM SERUM 148 mmol/L (136-145); TOTAL BILIRUBIN 1.1 mg/dL (0.0-1.0); UREA NITROGEN, BLOOD 81 mg/dL (8-21)
[2021-08-30 07:33] LABS: GLUCOSE 412 mg/dL (70-99)
[2021-08-30 08:00] VITALS: BP_SYST 140
[2021-08-30] MEDS ORDERED: VANCOMYCIN HCL 750 MG in NS 250 ML IV ONE (09:00)
[2021-08-30] MEDS: CYANOCOBALAMIN 1000 mCg TABLET PO SCH (09:52)
[2021-08-30] MEDS: FOLIC ACID 1 MG TABLET PO SCH (09:53)
[2021-08-30] MEDS: MEGESTROL ACETATE 40 MG TABLET PO SCH (09:53)
[2021-08-30 12:00] VITALS: BP_SYST 138
--- NOTE | 2021-08-30 13:45 | NUR ---
CM: faxed the expedite request and updated clinical notes to [facility] this am with confirmed receipt at 1127 am. I also spoke with Nadiya/health care analyst who took the info and made aware that this request has been delayed transfer for several days. per Nadiya she will report to the assigned cm who will call me back today. Addendum: 08/30/21 at 1552 by Fabiola Serrato RN S/W Mayda/jessica at [facility]: she plans to transfer pt to [facility] but there is no bed today. She will look for bed at [facility], if there is bed pt can transfer today. Mayda will call nursing unit with the transfer details, bed/location/report phone #, and ambulance ETA. Dtr agreed with the transfer plan. DC package delivered to [facility]as made aware. Addendum: 08/30/21 at 1554 by Fabiola Serrato RN Brad Ohara , jessica # [phone].
[2021-08-30 16:00] VITALS: BP_SYST 136
[2021-08-30 20:00] VITALS: BP_SYST 129
[2021-08-30] MEDS: INSULIN GLARGINE 100 UNITS/ML 10 ML VIAL SUBCUT SCH (22:24)
[2021-08-30] MEDS: SIMVASTATIN 10 MG TABLET PO SCH (22:27)
[2021-08-31 00:40] VITALS: BP_SYST 131
[2021-08-31] MEDS: NACL 0.9% 1,000 ML IV SCH ×2 (00:44→06:13)
[2021-08-31] MEDS ORDERED: VANCOMYCIN HCL 750 MG in NS 250 ML IV SCH (06:00)
[2021-08-31] MEDS: PIPERACILLIN/TAZO 3.375/DEX-IS 50 ML IV SCH ×3 (06:12→22:18)
[2021-08-31] MEDS: INSULIN REGULAR, HUMAN 100 UNITS/ML, 10 ML VIAL (humuLIN R) SUBCUT PRN ×4 (06:18→22:16)
[2021-08-31 07:22] LABS: BASOPHILS % (AUTO) 0.3 % (0.0-2.0); EOSINOPHILS % (AUTO) 0.3 % (0.0-4.0); HEMATOCRIT 34.2 % (36-54); HEMOGLOBIN 11.5 g/dL (14.0-18.0); LYMPHOCYTES # (AUTO) 0.8 K/uL (1.0-5.5); LYMPHOCYTES % (AUTO) 10.6 % (20.5-51.5); MEAN CORPUSCULAR HEMOGLOBIN 29 pg (27-31); MEAN CORPUSCULAR HGB CONC 34 % (32-36); MEAN CORPUSCULAR VOLUME 86 fL (79.0-98.0); MONOCYTES % (AUTO) 12.8 % (1.7-9.3); NEUTROPHILS # (AUTO) 5.9 K/uL (1.8-7.7); PLATELET COUNT (AUTO) 165 K/uL (130-430); RED BLOOD CELL COUNT(AUTO) 3.99 MIL/uL (4.2-6.2); RED CELL DISTRIBUTION WIDTH 16.2 % (9.0-15.0); WHITE BLOOD COUNT (AUTO) 7.7 K/uL (4.8-10.8)
[2021-08-31 07:42] LABS: ALANINE AMINOTRANSFERASE 31 U/L (12-78); ALBUMIN 1.7 g/dL (3.4-4.8); ANION GAP 9 (5-15); ASPARTATE AMINOTRANSFERASE 39 U/L (10-37); CALCIUM 9.3 mg/dL (8.4-11.0); CREATININE 1.47 mg/dL (0.55-1.30); GLUCOSE 255 mg/dL (70-99); POTASSIUM 3.8 mmol/L (3.5-5.1); SODIUM SERUM 155 mmol/L (136-145); TOTAL BILIRUBIN 0.8 mg/dL (0.0-1.0); UREA NITROGEN, BLOOD 69 mg/dL (8-21)
[2021-08-31 08:00] VITALS: BP_SYST 118
[2021-08-31 08:25] LABS: CHLORIDE 123 mmol/L (98-107)
[2021-08-31] MEDS: MEGESTROL ACETATE 40 MG TABLET PO SCH (09:19)
[2021-08-31] MEDS: FOLIC ACID 1 MG TABLET PO SCH (09:20)
[2021-08-31] MEDS: CYANOCOBALAMIN 1000 mCg TABLET PO SCH (09:20)
[2021-08-31] MEDS ORDERED: 0.45% NS 500 ML IV ONE (11:15)
[2021-08-31 12:00] VITALS: BP_SYST 130; BP_SYST 138
--- NOTE | 2021-08-31 15:11 | NUR ---
CM: f/u with Priyank/MAGDY cm, said no bed at [facility] location. Said dtr/Sneha aware. Mayda will call [facility] unit once has bed/location for the transfer. Continued inpatient auth received via fax auth#[id number] valid from/ti: 08/31/21-09/01/21 . case # [id number].
[2021-08-31 16:00] VITALS: BP_SYST 129
[2021-08-31 21:00] VITALS: BP_SYST 134
--- NOTE | 2021-08-31 21:15 | NUR ---
Family @ the bedside Reposition & Turn patient on two hour schedule kept clean also dry as needed no SOB noted skin dry also warm / .
[2021-08-31] MEDS: SIMVASTATIN 10 MG TABLET PO SCH (22:16)
[2021-08-31] MEDS: INSULIN GLARGINE 100 UNITS/ML 10 ML VIAL SUBCUT SCH (22:17)
[2021-09-01 00:39] VITALS: BP_SYST 143
--- NOTE | 2021-09-01 03:43 | NUR ---
HOURLY ROUNDING patient Resting HOB elevated Responsive to light touch & verbal stimuli chest movement symmetrical also unlabored / .
[2021-09-01] MEDS: PIPERACILLIN/TAZO 3.375/DEX-IS 50 ML IV SCH ×2 (06:01→13:47)
[2021-09-01] MEDS: INSULIN REGULAR, HUMAN 100 UNITS/ML, 10 ML VIAL (humuLIN R) SUBCUT PRN ×3 (06:02→17:07)
--- NOTE | 2021-09-01 06:39 | NUR ---
PHONED PAGED DR Karli HAY MD D/T POSITIVE B/C
--- NOTE | 2021-09-01 07:15 | NUR ---
opening note received sbar from night rn. patient in bed, respirations even, non labored. Bed in low and locked position, call light within reach. Bed alarm on
[2021-09-01 07:20] LABS: BASOPHILS % (AUTO) 0.3 % (0.0-2.0); EOSINOPHILS # (AUTO) 0.1 K/uL (0.0-0.4); EOSINOPHILS % (AUTO) 1.1 % (0.0-4.0); HEMATOCRIT 35.5 % (36-54); LYMPHOCYTES % (AUTO) 12.1 % (20.5-51.5); MEAN CORPUSCULAR HEMOGLOBIN 29 pg (27-31); MEAN CORPUSCULAR HGB CONC 34 % (32-36); MEAN CORPUSCULAR VOLUME 87 fL (79.0-98.0); MONOCYTES % (AUTO) 12.8 % (1.7-9.3); NEUTROPHILS % (AUTO) 73.7 % (40.0-70.0); PLATELET COUNT (AUTO) 203 K/uL (130-430); RED CELL DISTRIBUTION WIDTH 16.5 % (9.0-15.0); WHITE BLOOD COUNT (AUTO) 8.2 K/uL (4.8-10.8)
[2021-09-01 07:38] LABS: ALANINE AMINOTRANSFERASE 29 U/L (12-78); ALBUMIN 1.8 g/dL (3.4-4.8); ANION GAP 9 (5-15); ASPARTATE AMINOTRANSFERASE 36 U/L (10-37); CALCIUM 9.1 mg/dL (8.4-11.0); CREATININE 1.78 mg/dL (0.55-1.30); GLUCOSE 275 mg/dL (70-99); POTASSIUM 3.9 mmol/L (3.5-5.1); SODIUM SERUM 156 mmol/L (136-145); UREA NITROGEN, BLOOD 68 mg/dL (8-21)
[2021-09-01 07:41] LABS: CHLORIDE 125 mmol/L (98-107)
[2021-09-01 08:00] VITALS: BP_SYST 140
[2021-09-01] MEDS: MEGESTROL ACETATE 40 MG TABLET PO SCH ×2 (09:00→09:32)
[2021-09-01] MEDS ORDERED: 0.45% NACL 1,000 ML IV SCH (09:00)
[2021-09-01] MEDS: FOLIC ACID 1 MG TABLET PO SCH ×2 (09:00→09:32)
[2021-09-01] MEDS: CYANOCOBALAMIN 1000 mCg TABLET PO SCH ×2 (09:00→09:33)
--- NOTE | 2021-09-01 11:30 | NUR ---
CRITICAL LAB INFORMED DR CONTRERAS CHLORIDE 125 AND SODIUM 156 NEW ORDERS RECEIVED
--- NOTE | 2021-09-01 11:30 | NUR ---
BS obtained BS. did not administer insulin. patient has not been eating or drinking today
[2021-09-01] MEDS ORDERED: NS 500 ML IV ONE (11:45)
[2021-09-01 12:44] VITALS: BP_SYST 138
[2021-09-01 16:22] VITALS: BP_SYST 139
--- NOTE | 2021-09-01 17:07 | NUR ---
BS obtained BS. did not administer insulin. patient has not been eating or drinking today
--- NOTE | 2021-09-01 18:08 | NUR ---
[place] SPOKE WITH SOIL CONSERVATION AIDE PONCE, FROM [place]. PATIENT WILL BE TRANSFERRED TO [facility] [place] AT 2100 TONIGHT. DAUGHTER IS BEDSIDE AND HAS BEEN INFORMED Addendum: 09/01/21 at 1827 by Traci Escamilla RN [place] from [place] number [phone]. number for report is [phone] bed [facility] [place]
--- NOTE | 2021-09-01 19:34 | NUR ---
CLOSING NOTE PROVIDED SBAR TO NIGHT RN, PATIENT IN BED, RESPIRATIONS, EVEN, NON LABORED, BED IN LOW AND LOCKED POSITION, CALL LIGHT WITHIN REACH, BED ALARM ON. ENDORSED TRANSFER TO [facility] TO NIGHT RN
[2021-09-01 20:37] VITALS: BP_SYST 153
[2021-09-01 20:47] VITALS: BP_SYST 154
--- NOTE | 2021-09-01 21:19 | NUR ---
PHONED TRESSA CALDERON REPORT GIVEN [place] STILES REGARDING TRANSFER , TO CONTRACTED HOSPITAL , FAMILY ALSO UPDATED & AWARE OF TRANSFER , ALL PERSONAL BELONGINGS SENT WITH AMBULANCE - ORDERS CARRIED OUT / .
== END 2021-09-01 21:45 | disposition short-term general hospital (02) | DRG 871 ==
LOC: SED 10:16 → STU 18:42 → SMU 08-28 23:24
PROVIDERS: ADMIT Internal Medicine; ATTEND Internal Medicine
DX: A41.50 Gram-negative sepsis, unspecified (principal); E43 Unspecified severe protein-calorie malnutrition; G93.41 Metabolic encephalopathy; I48.92 Unspecified atrial flutter; N17.9 Acute kidney failure, unspecified; N39.0 Urinary tract infection, site not specified; F03.90 Unspecified dementia, unspecified severity, without behavioral disturbance, psychotic disturbance, mood disturbance, and anxiety; I10 Essential (primary) hypertension; R62.7 Adult failure to thrive; E11.9 Type 2 diabetes mellitus without complications; S09.90XA Unspecified injury of head, initial encounter; X58.XXXA Exposure to other specified factors, initial encounter; Z20.822 Contact with and (suspected) exposure to COVID-19; Z68.23 Body mass index [BMI] 23.0-23.9, adult; Z79.4 Long term (current) use of insulin; Z79.899 Other long term (current) drug therapy; Y93.89 Activity, other specified; Y92.89 Other specified places as the place of occurrence of the external cause; Y99.8 Other external cause status
CPT/HCPCS: 36415; 70450-TC; 71045; 72125-TC; 76376; 80048; 80053; 80061; 80202; 80307; 81000; 82607; 82962; 83605; 83735; 83880; 84443; 84484; 85025; 85610-TC; 85730-TC; 87040; 92610-GN; 93005; 93306; 95816; 97110-GP; 97116-GP; 97530-GP; 99285; G0378; G0480; G0481; G0482; J1815; J2543; J3370; J7050